=== PATIENT | female | born 1940 | race Caucasian/White ===

== ENCOUNTER 2016-06-17 14:17 | Observation (INO) | payer MEDICARE, BC ==
[2016-06-17] MEDS ORDERED: NORMAL SALINE 1,000 ML IV ONE (14:53)
[2016-06-17] MEDS ORDERED: ONDANSETRON HCL/PF 2 MG/ML VIAL IV ONE (14:53)
[2016-06-17 14:56] LABS: Hematocrit 36.3 % (37.0-47.0); Hemoglobin 12.3 gm/dL (12.5-16.0); Mean Cell Volume 90.8 fl (78-100); Mean Corpuscular Hemoglobin 30.8 pg (27-31); Mean Corpuscular Hgb Conc 33.9 g/dl (32-36); Mean Platelet Volume 9.4 fl (6.0-9.5); Neutrophil # 6.1 K/mm3 (1.3-6.0); Neutrophil % 62.9 % (42-75.0); Platelet Count 240 K/mm3 (150-450); Red Cell Distribution Width 11.9 % (11.5-14.0); White Blood Count 9.6 K/mm3 (4.0-10.5)
[2016-06-17] MEDS ORDERED: ONDANSETRON HCL/PF 2 MG/ML VIAL ONE (15:15)
[2016-06-17 15:40] LABS: ALT 18 U/L (19-67); AST 17 U/L (0-48); Albumin * 3.5 gm/dl (3.4-5.0); Alkaline Phosphatase * 80 U/L (50-170); Anion Gap 8.1 mmol/L (6.8-13.8); BUN/Creatinine Ratio 23.9 (9.0-21.6); Bilirubin, Total 0.2 mg/dL (0.0-1.1); Blood Urea Nitrogen 22 mg/dL (3-23); Ca. Corrected For Albumin 9.8 mg/dL (8.4-10.2); Calcium * 9.7 mg/dL (7.9-10.9); Carbon Dioxide 32.2 mmol/L (24-32.6); Chloride 102 mmol/L (97-106); Glucose * 129 mg/dL (70-110); Potassium 4.3 mmol/L (3.4-4.6); Sodium 138 mmol/L (132-142); Total Protein 7.2 gm/dL (6.2-8.2); Troponin I Less than 0.017 ng/ml (0.00-0.10)
[2016-06-17 16:30] LABS: Urine Bilirubin Negative (NEGATIVE); Urine Blood Negative /ul (NEGATIVE); Urine Ketone Negative (NEGATIVE); Urine Nitrite Negative (NEGATIVE); Urine Protein Negative (NEGATIVE); Urine Specific Gravity 1.025 SP.GR. (1.005-1.010); Urine Urobilinogen Normal (NORMAL)
[2016-06-17 16:42] LABS: Urine Appearance Clear; Urine Bacteria None Seen; Urine Color Dark Yellow; Urine RBC None Seen /hpf (0-5); Urine WBC 0-5 /hpf (0-5)
--- NOTE | 2016-06-17 16:59 | ERNOTE ---
Dizziness ER Record Date of Service: 06/17/16 Presenting Symptoms: dizziness Time Seen by Provider: 06/17/16 14:45 Source: patient, old records Immunizations: IMMUNIZATION HX Immunizations Up to Date Yes History of Influenza Vaccine No Hx Pneumococcal Vaccination No Allergies/Adverse Reactions: Allergies Allergy/AdvReac Type Severity Reaction Status Date / Time morphine Allergy Mild Hives Verified 06/17/16 14:41 Home Medications: HOME MEDICATIONS Celecoxib [Celebrex] 200 mg PO DAILY 05/24/14 [Last Taken Unknown] Darifenacin Hydrobromide [Enablex] 7.5 mg PO DAILY 05/24/14 [Last Taken 05/28/14 ] Lansoprazole [Prevacid] 30 mg PO DAILY 05/24/14 [Last Taken 05/28/14] Levothyroxine Sodium [Synthroid] 112 mcg PO DAILY 05/24/14 [Last Taken 05/28/14] Sulfamethoxazole/Trimethoprim [Bactrim Ds] 1 tab PO BID #28 tab 10/04/15 [Last Taken Unknown] Cyclobenzaprine HCl 10 mg PO DAILY 06/17/16 [Last Taken Unknown] - History of Present Illness Narrative: 76-year-old female presents to the emergency room for dizziness and blurred vision while at clinic. Patient states she has been not feeling well for the last few days, this had dizziness for the last 2 days. Patient states she has had nausea and vomiting x 3 days. She states that she does not know what brings on her dizziness. Date (Duration): 06/17/16 Timing and Duration: sudden onset Episodes lasting:: 1-2 min Noted on awakening:: No Severity: max: mild Severity: currently: mild Associated Symptoms: Present: light headedness Usually:: Present: walks w/o assistance Modifying Factors - (Improves): Reports: nothing Modifying Factors - (Worsens): Reports: nothing Review of Systems - Narrative Narrative: patient states that her dizziness comes an goes. she some times gets sweaty during the episodes. - Review of Systems Constitutional: Present: See HPI EYE: Present: see HPI, double vision ENT: Present: no symptoms reported Respiratory: Present: cough - x 2 weeks but states it is better. Cardiology: Present: no symptoms reported. Absent: chest pain, syncope Gastrointestinal/Abdominal: Present: See HPI, nausea, vomiting, diarrhea Genitourinary: Present: See HPI Musculoskeletal: Present: no symptoms reported Skin: Present: no symptoms reported Neurological: Present: dizziness/light-headedness Hematologic/Lymphatic: Present: no symptoms reported Psych: Present: no symptoms reported All Other Systems: All systems neg except as marked - Patient's Past Medical History Patient History - Medical: Chronic Pain, Depression, GERD, Hypothyroidism, UTI'S Patient History - Cardiac/Respiratory: Asthma, Hypertension Patient History - Cancer: No Hx of Cancer Patient History - Surgical Procedures: Appendectomy, Back Surgery, Colonoscopy, Hysterectomy, Total Hip Replacement, Other Patient History - Other: None - Social History Living Situations: spouse Psych History: Hx of Anxiety Smoking Status: Never smoker Have you smoked in the past 12 months: No Alcohol Use: none - Immunizations Immunizations Up to Date: Yes Hx Pneumococcal Vaccination: No History of Influenza Vaccine: No Physical Exam - Physical Exam General Appearance: Present: wd/wn, alert, no apparent distress Eye Exam: Normal inspection: bilateral, PERRL: bilateral Ears, Nose, Throat: Present: normal ENT inspection, normal pharynx. Absent: sinus pain/drainage, pharyngeal erythema, pharyngeal swelling Neck: Present: normal inspection, nontender, full range of motion Respiratory: Present: no respiratory distress, normal breath sounds, no accessory muscle use, chest nontender, lungs clear. Absent: decreased breath sounds Cardiovascular/Chest: Present: regular rate, rhythm, no murmur, normal peripheral pulses Gastrointestinal/Abdominal: Present: normal bowel sounds, nontender, nondistended, soft Back Exam: Present: normal inspection Extremity Exam: Present: normal inspection, normal range of motion Neurological Exam: Present: alert, oriented, normal mood/affect, no motor/ sensory deficits Skin Exam: Present: normal color, warm/dry Lymphatic Exam: Present: no adenopathy ED Progress - Results and Orders Patient's Lab Results:: I have reviewed the patient's lab results. Results and Orders: no acute process - Vital Signs Patient's Vital Signs:: I have reviewed the patient's vital signs. Vital Signs: Vital Signs 06/17/16 06/17/16 06/17/16 14:36 14:37 14:49 Temperature 36.7 C Pulse Rate 83 84 86 Respiratory 16 21 H Rate Blood Pressure 131/68 131/68 O2 Sat by Pulse 93 89 L Oximetry 06/17/16 14:51 Temperature Pulse Rate 85 Respiratory 14 Rate Blood Pressure 149/68 O2 Sat by Pulse 90 Oximetry - EKG EKG: NSR EKG read: Reviewed by me EKG Comments: Interpreted by the emergency room physician - CT/Ultrasound CT/Ultrasound Narrative: FINDINGS: CT Head W/O Contrast *: Age-related cortical atrophy and periventricular white matter chronic ischemic changes are present. Intracranial atherosclerotic calcifications noted. Overall stable. Stable bilateral basal ganglia calcifications. No acute intracranial hemorrhage. No midline shift or herniation. Akhtar and white matter differentiation is grossly intact. No obvious soft tissue swelling or scalp hematoma noted. Skull grossly intact, without signs of depressed skull fracture. Centimeters retention cyst within the left maxillary sinus. Mastoid air cells are grossly clear. IMPRESSION: 1. No acute intracranial hemorrhage or mass effect. 2. Stable findings as above. Electronically signed by Lucila Patterson M.D.. CTA Findings: I do not see evidence for axillary adenopathy. There are small lymph nodes in the mediastinum and hilum without definable adenopathy. The thoracic aorta is mildly opacified and I do not see evidence for aneurysm or dissection. There is mild atheromatous disease within the descending thoracic aorta. There is coronary artery calcification. There is mitral valve calcification. The heart is of normal size and I do not see evidence for significant pericardial effusion. There is a small to moderate hiatal hernia. The spleen and liver appear homogeneous. The adrenal glands are within normal limits. There is reasonably good opacification of pulmonary arteries. I do not see evidence for definable filling defect to suggest pulmonary embolus. The lung jacques demonstrate scattered fibrotic change, but are clear. I do not see evidence for consolidation, effusion, or pneumothorax. Bone windows demonstrate mild diffuse osteopenia without a definable acute osseous abnormality. A preliminary report was provided by [facility] on 06/17/2016 at 1827 hours. IMPRESSION: 1. NO EVIDENCE FOR PULMONARY EMBOLUS. 2. MITRAL VALVE CALCIFICATION. 3. SMALL TO MODERATE HIATAL HERNIA Electronically signed by Jeremie Rodriguez M.D.. Per Dr Brandyn Francisco, DO there was some "groundglass appearance along the periphery of the lings, correlate for interstitial pneumonia, acute air space not excluded ". - Progress/Reassessment Chief Complaint: Dizziness Progress:: Improved Progress Note-Subjective: 06/17/16 17:11 patient states she feels better after fluids, denies N/V and dizziness at this time. Departure Clinical Impression: Dehydration - Departure Disposition: [facility] Condition: Stable
--- OUTSIDE RECORDS SUMMARY | 2016-06-17 20:38 | XMS REPORT | Continuity of Care Document ---
:1940 Author Organization [facility] ([facility]) Address [address] [place] [address] Phone [phone] Care Team Providers Name Role Phone Provider, No-Primary Care Primary Care Provider Unavailable Source Comments This disclosure is being made pursuant to the Care Everywhere program, applicable federal and state laws, and may not contain all informaitonavailable regarding this patient.[facility] ([facility]) Active Allergies and Adverse Reactions Not on File Current Medications Not on file Active Problems Not on file Social History Tobacco Use Types Packs/Day Years Used Date Never Assessed Plan of Care Health Maintenance Due Date Last Done Comments Hepatitis B Vaccine (1 of 3 - Primary Series) 1940 Tdap Vaccine 06/12/1951 Lipid Disorder Screening 1958 Td Vaccine 1958 Mammogram 1980 Colonoscopy 1990 Zoster Vaccine 2000 Osteoporosis Screening (DXA Bone Density) 2005 Pneumococcal Vaccine (1 of 2 - PCV13) 2005 Influenza Vaccine: Seasonal (#1) 09/30/2015 Results from Last 3 Months Not on file
[2016-06-17] MEDS ORDERED: NORMAL SALINE 1,000 ML IV PRN (21:05)
[2016-06-17] MEDS ORDERED: ALBUTEROL SULFATE 2.5 MG/3 ML VIAL.NEB IH PRN (21:07)
--- NOTE | 2016-06-17 21:14 | HP ---
Chief Complaint - Chief Complaint Date of Service: 06/17/16 Time of Service: 21:13 Chief Complaint: "Dizziness, coughing x 1 week". Source of HPI- Pt; reliable, ER provider report. History of Present Illness: Mrs. Sun is a 76-yr-old [place] pt of Dr. Anthony Roberson with a PMH of: Asthma, Depression, GERD,HTN, Hypothyroidism, Overactive bladder, Recurrent UTI's & Urge Incontinence. Pt states that she happened to be around the campus for her screening tests appointments when she suddenly felt dizzy. She managed to walk until the registration desk but her dizziness & weakness got worse, and was afraid to continue further driving back home. She called his PCP' office but there was no vacancy to be seen, and was advised to go the ED. She reports having a cough that has been going on for about 1 week. The cough is mostly non - productive in nature and gets SOB once she goes into a coughing spell.She denies fever & chills. She reports having nausea/vomiting for the last 3 days and has not been eating well. She denies the associated symptoms abd. pain and diarrhea. Off note, she was recently started on a daily dose of Bactrim due to recurrent UTIs. At the ED today, the UA did not show any infection. She was found to have elevated D- dimer of 1.07 and a follow-up CT did no show any Pulmonary Emboli.There were findings that may be suggestive of Pneumonia. She will be admitted under observation status due to signs of dehydration and possible Pneumonia. - Patient's Past Medical History Patient History - Medical: Chronic Pain, Depression, GERD, Hypothyroidism, UTI'S Patient History - Cardiac/Respiratory: Asthma, Hypertension Patient History - Cancer: No Hx of Cancer Patient History - Surgical Procedures: Appendectomy, Back Surgery, Colonoscopy, Hysterectomy, Total Hip Replacement, Other Patient History - Other: None - Family History Mother Family History - Medical: Diabetes Type 2 Family History - Cardiac/Respiratory: Valvular Heart Disease Family History - Cancer: Breast Father Family History - Cardiac/Respiratory: Myocardial Infarction Family History - Cancer: No pertinent family hx - Social History Living Situations: spouse Psych History: Hx of Anxiety Smoking Status: Never smoker Have you smoked in the past 12 months: No Alcohol Use: none - Immunizations Immunizations Up to Date: Yes Hx Pneumococcal Vaccination: No History of Influenza Vaccine: No Review Of Systems (GEN) - Review of Systems Generalized/Overall Review: Present: Weakness, Malaise. Absent: Chills, Fever EENTM: Absent: Eye Pain, Blurred Vision, Double Vision, Throat Swelling Respiratory: Present: Cough, Shortness of Breath, Wheezing. Absent: Orthopnea, Stridor Cardiac: Absent: Chest Pain, Palpitations, Syncope Abdominal: Present: Nausea. Absent: Vomiting, Hematemesis, Abdominal Pain, Constipation, Diarrhea Genitourinary: Absent: Burning, Frequency, Hesitancy Musculoskeletal: Absent: Joint Pain, Back Pain, Joint Swelling Neurological: Present: Weakness. Absent: Headache, Anxiety, Depressed, Numbness Skin: Absent: Dryness, Lesions, Bruising Endocrine: Present: Intolerance to Cold. Absent: Increased Hunger, Increased Thirst Misc: All systems neg except as marked Allergies/Adverse Reactions: Allergies Allergy/AdvReac Type Severity Reaction Status Date / Time morphine Allergy Mild Hives Verified 06/17/16 14:41 Home Medications: HOME MEDICATIONS Celecoxib [Celebrex] 200 mg PO DAILY 05/24/14 [Last Taken 06/17/16] Darifenacin Hydrobromide [Enablex] 7.5 mg PO DAILY 05/24/14 [Last Taken 06/17/16 ] Lansoprazole [Prevacid] 30 mg PO DAILY 05/24/14 [Last Taken 06/17/16] Levothyroxine Sodium [Synthroid] 100 mcg PO DAILY 05/24/14 [Last Taken 06/17/16] Sulfamethoxazole/Trimethoprim [Bactrim Ds] 1 tab PO BID #28 tab 10/04/15 [Last Taken 06/17/16] Cholecalciferol (Vitamin D3) [Vitamin D3] 20,000 unit PO .WEEKLY 06/17/16 [Last Taken 06/16/16] Cyclobenzaprine HCl 10 mg PO HS 06/17/16 [Last Taken 06/16/16] traMADol HCL [Ultram] 100 mg PO BID PRN 06/17/16 [Last Taken Unknown] traZODone HCL [Trazodone HCl] 50 mg PO HS PRN 06/17/16 [Last Taken Unknown] Exam - Exam Vital Signs: Vital Signs - Last Taken Temp 36.7 C 06/17/16 14:36 Pulse 86 06/17/16 21:00 Resp 18 06/17/16 21:00 BP 109/68 06/17/16 21:00 Pulse Ox 95 06/17/16 21:00 Constitutional: Present: Alert, Oriented x3, Cooperative, Mild distress ENT Exam: Present: hearing grossly normal Eye Exam: bilateral eye: normal inspection, PERRL Neck: Present: full range of motion, supple, normal inspection Back Exam: Present: no CVA tenderness Respiratory: Present: no accessory muscle use, decreased breath sounds, No wheezing Cardiovascular/Chest: Present: regular rate, rhythm, no chest tenderness, no edema, no murmur Abdomen: Present: Normal bowel sounds, soft, nontender /Rectal: Present: Exam deferred Extremity: Present: normal range of motion, non-tender, normal inspection, no pedal edema Skin Exam: Present: normal color, no cyanosis Lymphatic: Present: no adenopathy Neurologic: Present: alert, normal mood/affect, oriented x 3 Appearance: Present: appropriate appearance, appropriate insight Eye contact: Present: cooperative, good eye contact, normal speech Thoughts: Present: normal thought pattern, no apparent hallucination Diagnostic Studies: Laboratory Results WBC 9.6 K/mm3 (4.0-10.5) 06/17/16 14:49 RBC 4.00 M/mm3 (4.2-5.4) L 06/17/16 14:49 Hgb 12.3 gm/dL (12.5-16.0) L 06/17/16 14:49 Hct 36.3 % (37.0-47.0) L 06/17/16 14:49 MCV 90.8 fl (78-100) 06/17/16 14:49 MCH 30.8 pg (27-31) 06/17/16 14:49 MCHC 33.9 g/dl (32-36) 06/17/16 14:49 RDW 11.9 % (11.5-14.0) 06/17/16 14:49 Plt Count 240 K/mm3 (150-450) 06/17/16 14:49 MPV 9.4 fl (6.0-9.5) 06/17/16 14:49 Immature Gran % (Auto) 0.30 % (0.001-0.429) 06/17/16 14:49 Immature Gran # (Auto) 0.03 K/mm3 (0.000-0.0310) 06/17/16 14:49 Neutrophils % 62.9 % (42-75.0) 06/17/16 14:49 Lymphocytes % 15.8 % (20-51) L 06/17/16 14:49 Monocytes % 6.8 % (0.0-9) 06/17/16 14:49 Eosinophils % 13.6 % (0.0-3.0) H 06/17/16 14:49 Basophils % 0.6 % (0.0-1.0) 06/17/16 14:49 Nucleated RBC % 0.0 k/mm3 (0-1) 06/17/16 14:49 Neutrophils # 6.1 K/mm3 (1.3-6.0) H 06/17/16 14:49 Lymphocytes # 1.5 k/mm3 (1.5-3.5) 06/17/16 14:49 Monocytes # 0.7 k/mm3 (0.0-1.0) 06/17/16 14:49 Eosinophils # 1.3 k/mm3 (0.0-0.7) H 06/17/16 14:49 Absolute Basophils 0.1 k/mm3 (0.0-0.1) 06/17/16 14:49 D-Dimer 1.07 mg/L (0.19-0.49) H 06/17/16 14:49 pCO2 37.6 mmHg (32.0-45.0) 06/17/16 18:41 pO2 68.2 mmHg (83.0-108.0) L 06/17/16 18:41 HCO3 20.6 mmol/L (21.0-28.0) L 06/17/16 18:41 Total CO2 21.7 mmol/L (19.0-24.0) 06/17/16 18:41 Base Excess -4.4 mmol/L (-2.0-3.0) L 06/17/16 18:41 ABG pH 7.36 (7.35-7.45) 06/17/16 18:41 ABG O2 Sat (Measured) 93.0 % (94.0-98.0) L 06/17/16 18:41 Sodium 138 mmol/L (132-142) 06/17/16 14:49 Plasma Sodium 138 mmol/L (130-142) 06/17/16 14:49 Potassium 4.3 mmol/L (3.4-4.6) 06/17/16 14:49 Chloride 102 mmol/L (97-106) 06/17/16 14:49 Carbon Dioxide 32.2 mmol/L (24-32.6) 06/17/16 14:49 Anion Gap 8.1 mmol/L (6.8-13.8) 06/17/16 14:49 BUN 22 mg/dL (3-23) 06/17/16 14:49 Creatinine 0.92 mg/dL (0.4-1.4) 06/17/16 14:49 Est GFR (Non-Af Amer) 63 mL/min (60-130) D 06/17/16 14:49 BUN/Creatinine Ratio 23.9 (9.0-21.6) H 06/17/16 14:49 Random Glucose 129 mg/dL (70-110) H 06/17/16 14:49 Calcium 9.7 mg/dL (7.9-10.9) 06/17/16 14:49 Calcium Adj for Albumin 9.8 mg/dL (8.4-10.2) 06/17/16 14:49 Total Bilirubin 0.2 mg/dL (0.0-1.1) 06/17/16 14:49 AST 17 U/L (0-48) 06/17/16 14:49 ALT 18 U/L (19-67) L 06/17/16 14:49 Alkaline Phosphatase 80 U/L (50-170) 06/17/16 14:49 Troponin I Less than 0.017 ng/ml (0.00-0.10) 06/17/16 14:49 B-Natriuretic Peptide 230 pg/mL (5-550) 06/17/16 14:49 Total Protein 7.2 gm/dL (6.2-8.2) 06/17/16 14:49 Albumin 3.5 gm/dl (3.4-5.0) 06/17/16 14:49 Urine Color Dark yellow 06/17/16 16:00 Urine Appearance Clear 06/17/16 16:00 Urine pH 6.0 pH (5.0-7.0) 06/17/16 16:00 Ur Specific [place] 1.025 SP.GR. (1.005-1.010) 06/17/16 16:00 Urine Protein Negative mg/dL (NEGATIVE) 06/17/16 16:00 Urine Glucose (UA) Negative mg/dL (NEGATIVE) 06/17/16 16:00 Urine Ketones Negative mg/dL (NEGATIVE) 06/17/16 16:00 Urine Blood Negative /ul (NEGATIVE) 06/17/16 16:00 Urine Nitrate Negative (NEGATIVE) 06/17/16 16:00 Urine Bilirubin Negative mg/dl (NEGATIVE) 06/17/16 16:00 Urine Urobilinogen Normal EU/dl (NORMAL) 06/17/16 16:00 Ur Leukocyte Esterase Negative /ul (NEGATIVE) 06/17/16 16:00 Urine RBC None seen /hpf (0-5) 06/17/16 16:00 Urine WBC 0-5 /hpf (0-5) 06/17/16 16:00 Ur Epithelial Cells 0-5 /hpf (0-5) 06/17/16 16:00 Urine Bacteria None seen (NONE) 06/17/16 16:00 Urine Culture Comments No culture indicated 06/17/16 16:00 Assessment/Plan - Assessment/Plan (1) Dehydration Assessment: Mrs. Sun reported having n/v x 3 days which probably caused her to be hypovolemic and therefore this could explain the dizziness and weakness she was having. She will be admitted under observation and hydrated with IVF. Even though Her BMP and CBC were unremarkable, she was noted to have dry mucous membranes. Problem: Acute (2) Pneumonia Assessment: Pt reported having a cough x 1 week, however, the cough was mostly non- production. The CT was initially interpreted as having findings suggestive of pneumonia, however, the second report showed that her lungs were clear without any consolidation or infiltrates. So it is unlikely that she has Pneumonia given also that she had non- productive cough, WBC was in the normal range and SOB is precipitated with coughing and not with activity or at rest. She also did not require Oxygen supplementation. Will not need to continue with IV antibiotics. Problem: Ruled-out (3) Recurrent UTI Assessment: Continue with Bactrim. Problem: Chronic (4) Urge incontinence Problem: Chronic (5) HTN (hypertension) Problem: Chronic Qualifiers: Hypertension type: essential hypertension Qualified Code(s): I10 - Essential (primary) hypertension (6) GERD (gastroesophageal reflux disease) Problem: Chronic
[2016-06-17] MEDS ORDERED: AZITHROMYCIN 500 MG in DEXTROSE 5 % IN WATER 250 ML IV SCH ×2 (22:00)
[2016-06-18] MEDS ORDERED: traZODone HCL 50 MG TABLET PO PRN (02:57)
[2016-06-18] MEDS ORDERED: traMADol HCL 50 MG TABLET PO PRN (02:57)
[2016-06-18 05:34] LABS: Hematocrit 34.9 % (37.0-47.0); Hemoglobin 11.7 gm/dL (12.5-16.0); Mean Cell Volume 92.3 fl (78-100); Mean Corpuscular Hgb Conc 33.5 g/dl (32-36); Mean Platelet Volume 9.8 fl (6.0-9.5); Neutrophil # 3.2 K/mm3 (1.3-6.0); Neutrophil % 44.1 % (42-75.0); Platelet Count 232 K/mm3 (150-450); Red Blood Count 3.78 M/mm3 (4.2-5.4); White Blood Count 7.3 K/mm3 (4.0-10.5)
[2016-06-18 05:48] LABS: Anion Gap 10.7 mmol/L (6.8-13.8); BUN/Creatinine Ratio 16.1 (9.0-21.6); Calcium * 9.1 mg/dL (7.9-10.9); Carbon Dioxide 29.7 mmol/L (24-32.6); Estimated Creat Clear 45.5; Potassium 4.4 mmol/L (3.4-4.6)
[2016-06-18] MEDS ORDERED: PANTOPRAZOLE SODIUM 40 MG TABLET.EC PO SCH (07:00)
[2016-06-18] MEDS ORDERED: LEVOTHYROXINE SODIUM 100 MCG TABLET PO SCH (07:00)
[2016-06-18 07:17] VITALS: BP 130/58
[2016-06-18] MEDS ORDERED: CELECOXIB 100 MG CAPSULE PO SCH (09:00)
[2016-06-18] MEDS ORDERED: TOLTERODINE TARTRATE 2 MG CAPSULE PO SCH (09:00)
[2016-06-18] MEDS ORDERED: SULFAMETHOXAZOLE/TRIMETHOPRIM 1 TAB TABLET PO SCH (09:00)
[2016-06-18] MEDS ORDERED: DARIFENACIN HYDROBROMIDE 7.5 MG PO SCH (09:00)
--- NOTE | 2016-06-18 13:18 | DS ---
(1) Dehydration Problem: Acute (2) GERD (gastroesophageal reflux disease) Problem: Chronic Qualifiers: Esophagitis presence: esophagitis presence not specified Qualified Code(s) : K21.9 - Gastro-esophageal reflux disease without esophagitis (3) HTN (hypertension) Problem: Chronic Qualifiers: Hypertension type: essential hypertension Qualified Code(s): I10 - Essential (primary) hypertension (4) Recurrent UTI Problem: Chronic (5) Urge incontinence Problem: Chronic (6) Pneumonia Problem: Ruled-out Description of Stay: Date of Admission: 06/17/16 Date of Discharge: 06/18/16 Diagnostics: CTA of the Chest (06/17/16) - negative for PE - possible pneumonia (per [facility] read, this was not seen on re-read by inhouse radiology) - small to moderate hiatal hernia - mitral valve calcifications - coronary artery calcifications CT of the head - intracranial atherosclerotic calcifications noted - stable bilateral basal ganglia calcifications - no acute intracranial hemorrhage or mass effect Description of stay: Erika is a 76 year old female who presented to the ER with c/o dizziness, headache, n/v x3 days and dry cough x1 week. ER work up revealed neg UA, d dimer 1.07, CT chest possible for pneumonia per [facility] radiology and ct of head non acute. patient was admitted for dehydration and possible pneumonia. The patient was started on IV fluids. The following day (06/18/16), the patient improved clinically. Over-read of the CTA of the chest by in-house radiology showed no pneumonia. Patient was discharged on 06/18/16 with no new medications and instructions to push fluids. Procedures Performed: none Discharge Disposition: Home self care Disposition: Home self-care Condition: Undetermined Discharge Activity: Activity as tolerated Discharge Diet: General/regular food - push fluids Referrals: Anthony Roberson MD [Primary Care Provider] - Problem Oriented Discharge Instructions to Patient/Family: Dehydration, Adult, [id number] Additional Patient Instructions (free text): Push fluids - water!!! Follow up with Dr. Roberson in 2-3 weeks on June at 9:15 AM. Complete Home Medications List: Complete Home Medication List: Celecoxib [Celebrex] 200 mg PO DAILY 05/24/14 Darifenacin Hydrobromide [Enablex] 7.5 mg PO DAILY 05/24/14 Lansoprazole [Prevacid] 30 mg PO DAILY 05/24/14 Levothyroxine Sodium [Synthroid] 100 mcg PO DAILY 05/24/14 Cholecalciferol (Vitamin D3) [Vitamin D3] 20,000 unit PO .WEEKLY 06/17/16 Cyclobenzaprine HCl 10 mg PO HS 06/17/16 traMADol HCL [Ultram] 100 mg PO BID PRN 06/17/16 traZODone HCL [Trazodone HCl] 50 mg PO HS PRN 06/17/16
[2016-06-18] MEDS ORDERED: CYCLOBENZAPRINE HCL 10 MG TABLET PO SCH (21:00)
[2016-06-23] MEDS ORDERED: CHOLECALCIFEROL 5,000 UNIT TABLET PO SCH (09:00)
== END 2016-06-18 14:05 | disposition home or self-care (01) ==
LOC: ER 14:17 → MS 20:34 → UNDOADMOB 20:34 → MS 21:48
PROVIDERS: ADMIT Nurse Practitioner; ATTEND Internal Medicine
DX: E86.0 Dehydration (principal); K21.9 Gastro-esophageal reflux disease without esophagitis; I10 Essential (primary) hypertension; N39.0 Urinary tract infection, site not specified; N39.41 Urge incontinence; E66.9 Obesity, unspecified; Z68.36 Body mass index [BMI] 36.0-36.9, adult; J06.9 Acute upper respiratory infection, unspecified; Z12.31 Encounter for screening mammogram for malignant neoplasm of breast; Z78.0 Asymptomatic menopausal state
CPT/HCPCS: 36415; 36600; 70450; 71275; 77063; 77080; 80048; 80053; 81001; 82803; 83880; 84484; 85025; 85379; 87040; 87070; 87449; 93005; 96361; 96365; 96375; 99284; G0202; G0378

== ENCOUNTER 2016-07-17 19:00 | Emergency (ER) | payer MEDICARE, BC ==
[2016-07-17] MEDS ORDERED: DIPHTH,PERTUSS(ACELL),TET VAC 0.5 ML VIAL IM ONE (19:46)
--- OUTSIDE RECORDS SUMMARY | 2016-07-17 19:46 | XMS REPORT | Continuity of Care Document ---
:1940 Author Organization [facility] ([facility]) Address [address] [place] [address] Phone [phone] Care Team Providers Name Role Phone Provider, No-Primary Care Primary Care Provider Unavailable Source Comments This disclosure is being made pursuant to the Care Everywhere program, applicable federal and state laws, and may not contain all informaitonavailable regarding this patient.[facility] ([facility]) Active Allergies and Adverse Reactions Not [...]
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
[2016-07-17 20:38] VITALS: BP 128/82
== END 2016-07-17 20:36 | disposition home or self-care (01) ==
LOC: ER 19:00
PROC: 0JQJ0ZZ Repair Right Hand Subcutaneous Tissue and Fascia, Open Approach (ICD-10-PCS; principal; 2016-07-17)
DX: S61.411A Laceration without foreign body of right hand, initial encounter (principal); W19.XXXA Unspecified fall, initial encounter; W10.2XXA Fall (on)(from) incline, initial encounter; Z91.81 History of falling; Y93.89 Activity, other specified; Y92.008 Other place in unspecified non-institutional (private) residence as the place of occurrence of the external cause; I10 Essential (primary) hypertension; G89.29 Other chronic pain; K21.9 Gastro-esophageal reflux disease without esophagitis; E03.9 Hypothyroidism, unspecified; Z23 Encounter for immunization